=== PATIENT | female | born 1950 | race Caucasian/White ===

== ENCOUNTER → 2016-10-11 | Outpatient (CLI) | payer OTHER ==
[~2016-10-11] MED LIST: CETI10CA PO; EST45C VG; L GA1CAP PO
--- OUTSIDE RECORDS SUMMARY | 2016-10-11 07:03 | XMS REPORT | Continuity of Care Document ---
Author Author [facility] Organization [facility] Address Unknown Phone Unavailable Allergies Active Description Code Type Severity Reaction Onset Reported/Identified Relationship to Patient Clinical Status Yes No Known Drug Allergies [id number] Drug Allergy Unknown N/ A 10/05/2013 Medications Problems Date Dx Coded Attending Type Code Diagnosis Diagnosed By 10/06/2013 LOLITA ALEGRIA DO Ot 211.3 10/06/2013 LOLITA ALEGRIA DO Ot 569.0 10/06/2013 LOLITA ALEGRIA DO Ot V16.0 10/06/2013 LOLITA ALEGRIA DO Ot V76.51 06/25/2014 FREEMAN DO, CHERYL Ot 305.1 06/25/2014 FREEMAN DO, CHERYL Ot 786.09 06/25/2014 FREEMAN DO, CHERYL Ot V16.0 06/25/2014 FREEMAN DO, CHERYL Ot V58.69 06/25/2014 FREEMAN DO, CHERYL Ot V70.0 06/25/2014 Ot 305.1 06/25/2014 Ot V16.0 06/25/2014 Ot V70.0 06/25/2014 Ot V72.62 06/25/2014 Ot V82.81 06/25/2014 Ot V76.12 06/25/2014 FREEMAN DO, CHERYL Ot 305.1 06/25/2014 FREEMAN DO, CHERYL Ot V16.0 06/25/2014 FREEMAN DO, CHERYL Ot V70.0 06/25/2014 FREEMAN DO, CHERYL Ot V76.12 06/25/2014 LOLITA ALEGRIA DO Ot V72.84 07/06/2014 FREEMAN DO, CHERYL Ot 305.1 07/06/2014 FREEMAN DO, CHERYL Ot 786.09 07/06/2014 FREEMAN DO, CHERYL Ot V16.0 07/06/2014 FREEMAN DO, CHERYL Ot V58.69 07/06/2014 FREEMAN DO, CHERYL Ot V70.0 09/20/2014 FREEMAN DO, CHERYL Ot V76.12 03/07/2015 FREEMAN DO, CHERYL Ot 305.1 03/07/2015 FREEMAN DO, CHERYL Ot 496 03/07/2015 FREEMAN DO, CHERYL Ot 627.3 03/07/2015 FREEMAN DO, CHERYL Ot V16.0 03/07/2015 FREEMAN DO, CHERYL Ot V58.69 03/07/2015 FREEMAN DO, CHERYL Ot V70.0 02/23/2016 FREEMAN DO, CHERYL Ot E55.9 VITAMIN D DEFICIENCY, UNSPECIFIED 02/23/2016 FREEMAN DO, CHERYL Ot Z00.00 ENCNTR FOR GENERAL ADULT MEDICAL EXAM 02/23/2016 FREEMAN DO, CHERYL Ot Z87.891 PERSONAL HISTORY OF NICOTINE DEPENDENCE Procedures Results Encounters ACCT No. Visit Date/Time Discharge Status Pt. Type Provider Facility Loc./Unit Complaint [id number] 02/18/2015 09:44:00 2014 23:59:59 CLS Outpatient FREEMAN DO, CHERYL [facility] LAB [id number] 09/03/2014 10:12:00 2014 23:59:59 CLS Outpatient FREEMAN DO, CHERYL [facility] RAD [id number] 06/23/2014 11:34:00 2013 23:59:59 CLS Outpatient FREEMAN DO, CHERYL [facility] RT [id number] 10/06/2013 11:48:00 2013 15:10:00 DIS Outpatient RAJI DOLOLITA D [facility] [id number] 09/30/2013 07:26:00 2013 23:59:59 CLS Outpatient RAJI DO LOLITA D [facility] PREOP [id number] 08/26/2013 09:18:00 2013 23:59:59 CLS Outpatient FREEMAN DO, CHERYL [facility] RAD [id number] 08/20/2013 11:14:00 2013 23:59:59 CLS Outpatient FREEMAN DO, CHERYL [facility] LAB [id number] 05/10/2013 15:27:00 2012 23:59:59 CLS Outpatient [id number] 02/23/2016 06:41:00 ACT Outpatient CHERYL FREEMAN DO [facility] LAB [id number] 10/03/2015 07:22:00 ACT Outpatient CHERYL FREEMAN DO [facility] [id number] 06/20/2012 07:22:00 Document Registration [id number] 05/15/2012 08:57:00 Document Registration
--- NOTE | 2016-10-12 10:43 | Diagnostic Imaging Report ---
Bilateral screening mammogram. The current study was also evaluated with a Computer Aided Detection (CAD) system. INDICATION: Screening. No current complaints stated on the questionnaire. COMPARISON: 10/03/2015. FINDINGS: The breasts are composed of scattered fibroglandular densities. There is no mass, architectural distortion, or suspicious of calcification. Allowing for technique and positional differences, no suspicious change is seen. IMPRESSION: No significant change. ACR BI-RADS Category 2: Benign findings. Result letter will be mailed to the patient. Note: At least 10% of breast cancer is not imaged by mammography. Dictated by: Dictated on workstation # [id number]
== END ==
LOC: RAD 07:00
PROVIDERS: ATTEND Internal Medicine
DX: Z12.31 Encounter for screening mammogram for malignant neoplasm of breast (principal)
CPT/HCPCS: 77067

== ENCOUNTER → 2017-04-22 | Outpatient (CLI) | payer OTHER ==
[2017-04-22 06:55] LABS: BASOPHILS # (AUTO) 0.1 10^3/uL (0.0-0.1); BASOPHILS % (AUTO) 1 % (0-10); EOSINOPHILS # (AUTO) 0.2 10^3/uL (0.0-0.3); EOSINOPHILS % (AUTO) 3 % (0-10); LYMPHOCYTES # (AUTO) 2.1 X 10^3 (1.0-4.0); LYMPHOCYTES % (AUTO) 31 % (12-44); MEAN CORPUSCULAR HEMOGLOBIN 31 PG (25-34); MEAN CORPUSCULAR HGB CONC 33 G/DL (32-36); MEAN CORPUSCULAR VOLUME 94 FL (80-99); MEAN PLATELET VOLUME 9.9 FL (7.4-10.4); MONOCYTES # (AUTO) 0.8 X 10^3 (0.0-1.0); MONOCYTES % (AUTO) 12 % (0-12); NEUTROPHILS # (AUTO) 3.7 X 10^3 (1.8-7.8); NEUTROPHILS % (AUTO) 54 % (42-75); PLATELET COUNT 275 10^3/uL (130-400); RED BLOOD COUNT 4.82 10^6/uL (4.35-5.85); RED CELL DISTRIBUTION WIDTH 13.5 % (10.0-14.5); WHITE BLOOD COUNT 6.9 10^3/uL (4.3-11.0)
[2017-04-22 07:17] LABS: ALANINE AMINOTRANSFERASE 29 U/L (0-55); ANION GAP 7 MMOL/L (5-14); ASPARTATE AMINO TRANSFERASE 21 U/L (5-34); BILIRUBIN,TOTAL 0.4 MG/DL (0.1-1.0); BLOOD UREA NITROGEN 15 MG/DL (7-18); BUN/CREATININE RATIO 18; CALCIUM 9.1 MG/DL (8.5-10.1); CARBON DIOXIDE 24 MMOL/L (21-32); CHLORIDE 110 MMOL/L (98-107); CHOLESTEROL 157 MG/DL (< 200); CREATININE SERUM 0.85 MG/DL (0.60-1.30); DIRECT LDL 64 MG/DL (1-129); GFR ESTIMATED > 60; GLUCOSE 92 MG/DL (70-105); POTASSIUM 4.3 MMOL/L (3.6-5.0); SODIUM 141 MMOL/L (135-145); TOTAL PROTEIN 6.7 GM/DL (6.4-8.2); TRIGLYCERIDES 87 MG/DL (<150); VLDL CHOLESTEROL 17 MG/DL (5-40)
[2017-04-22 07:37] LABS: THYROID STIMULATING HORMONE 1.59 UIU/ML (0.35-4.94)
== END ==
LOC: LAB 06:41
PROVIDERS: ATTEND Internal Medicine
DX: E78.1 Pure hyperglyceridemia (principal); E78.00 Pure hypercholesterolemia, unspecified
CPT/HCPCS: 36415; 80053; 80061; 84443; 85025

== ENCOUNTER → 2017-10-31 | Outpatient (CLI) | payer OTHER ==
--- NOTE | 2017-10-31 17:50 | Diagnostic Imaging Report ---
INDICATION: Routine screening. Comparison is made with prior exam from 10/11/2016 and 10/03/2015. The current study was also evaluated with a Computer Aided Detection (CAD) system. FINDINGS: Scattered fibroglandular densities are identified bilaterally. The parenchymal pattern is stable. No dominant mass or malignant-appearing microcalcifications are seen. The axillae are unremarkable. IMPRESSION: No mammographic features suspicious for malignancy are identified. ACR BI-RADS Category 1: Negative. Result letter will be mailed to the patient. Note: At least 10% of breast cancer is not imaged by mammography. Dictated by: Dictated on workstation # [id number]
== END ==
LOC: RAD 10-22 07:11
PROVIDERS: ATTEND Internal Medicine
DX: Z12.31 Encounter for screening mammogram for malignant neoplasm of breast (principal)
CPT/HCPCS: 77067

== ENCOUNTER → 2018-12-03 | Outpatient (CLI) | payer MEDICARE, OTHER ==
--- NOTE | 2018-12-03 21:29 | Diagnostic Imaging Report ---
INDICATION: Routine screening. COMPARISON: Prior mammogram from 10/31/2017 and 10/11/2016. EXAMINATION: 2D and 3D bilateral screening mammography was performed with CAD. The current study was also evaluated with a Computer Aided Detection (CAD) system. FINDINGS: Scattered fibronodular densities are identified, bilaterally. No mass or malignant appearing microcalcifications are seen. Axillae are unremarkable. IMPRESSION: No mammographic features suspicious for malignancy are identified. ACR BI-RADS Category 1: Negative. Result letter will be mailed to the patient. Note: At least 10% of breast cancer is not imaged by mammography. Dictated by: Dictated on workstation # [id number]
== END ==
LOC: RAD 09:51
PROVIDERS: ATTEND Internal Medicine
DX: Z12.31 Encounter for screening mammogram for malignant neoplasm of breast (principal)
CPT/HCPCS: 77067

== ENCOUNTER → 2020-07-27 | Outpatient (CLI) | payer MEDICARE, OTHER ==
--- NOTE | 2020-07-27 08:44 | Diagnostic Imaging Report ---
PA and lateral chest at 7:24. Indication: Shortness of breath The heart size is within normal limits and stable when compared to 03/14/2007. The lungs are hyperexpanded. This does suggest COPD. There is no evidence for failure, pneumonia or for pleural effusion to indicate an acute abnormality. However in the interval since the prior exam, a poorly defined 1.4 cm area of increased density has developed in the right perihilar region on the PA view. There is no corresponding abnormality seen on the lateral view and this finding may merely be secondary to superimposition of the bronchovascular markings as opposed to a parenchymal mass. Even so, I would recommend that a repeat PA chest be obtained for further study. If this density persists on the followup PA view, then CT of the chest may be necessary for further study. The mediastinum is not widened. The osseous structures are intact. Impression: 1. There is evidence of COPD but there is no sign of an acute cardiopulmonary abnormality.. 2. The small area of increased density in the right perihilar region seen on the PA view is of uncertain etiology. Considerations and recommendations as above. Dictated by: Dictated on workstation # [id number]
--- NOTE | 2020-07-27 13:14 | Diagnostic Imaging Report ---
Digital mammogram INDICATION: Bilateral screening This study was compared to the prior exams of 12/03/2018, 10/31/2017 and 10/11/2016. At this time there are no current complaints. The current study was also evaluated with a Computer Aided Detection (CAD) system. FINDINGS: The fibroglandular tissue in both breasts is heterogeneously dense. This does limit the sensitivity of this exam. Overall, there does not appear to have been any significant change when compared to the prior study. No primary or secondary sign of malignancy is noted. IMPRESSION: There is no radiographic evidence for malignancy. ACR BI-RADS Category 1: Negative. Result letter will be mailed to the patient. Note: At least 10% of breast cancer is not imaged by mammography. Dictated by: Dictated on workstation # [id number]
== END ==
LOC: RAD 07:45
PROVIDERS: ATTEND Internal Medicine
DX: Z12.31 Encounter for screening mammogram for malignant neoplasm of breast (principal); R06.02 Shortness of breath
CPT/HCPCS: 71046; 77063; 77067

== ENCOUNTER → 2020-09-01 | Outpatient (CLI) | payer MEDICARE, OTHER ==
[~2020-09-01] MED LIST changes: +RT-ALBUTEROL SULF 2.5 MG/3 ML PRE-MIX VIAL INH ONE
== END ==
LOC: RT 08:00
PROVIDERS: ATTEND Internal Medicine
DX: J44.9 Chronic obstructive pulmonary disease, unspecified (principal)
CPT/HCPCS: 94060; 94726; 94729

== ENCOUNTER 2020-09-09 05:49 | Outpatient (RCR) | payer MEDICARE, OTHER ==
[~2020-09-09] VITALS: Ht 165.1 cm; Wt 81.7 kg
[~2020-09-09 05:49] MED LIST changes: +ASPI-999 PO; +CETI10TA17 PO; +RT-ALBUINH IH; -RT-ALBUTEROL SULF 2.5 MG/3 ML PRE-MIX VIAL INH ONE; +UMEC62.5 IH
== END 2020-09-12 12:23 | disposition home or self-care (01) ==
LOC: PREOP 05:49
PROVIDERS: ATTEND Surgery
DX: Z01.812 Encounter for preprocedural laboratory examination (principal); Z20.822 Contact with and (suspected) exposure to COVID-19; Z80.0 Family history of malignant neoplasm of digestive organs
CPT/HCPCS: 87635

== ENCOUNTER 2020-09-13 08:34 | Day surgery (SDC) | payer MEDICARE, OTHER ==
[~2020-09-13] VITALS: Ht 165.1 cm; Wt 81.7 kg
[2020-09-13] MEDS ORDERED: LACTATED RINGERS 1,000 ML IV ONE (08:35)
[2020-09-13] MEDS ORDERED: LACTATED RINGERS 1,000 ML IV STA (08:42)
--- NOTE | 2020-09-13 09:05 | Progress Note-Pre Operative ---
Pre-Operative Progress Note H&P Reviewed The H&P was reviewed, patient examined and no changes noted. Date Seen by Provider: Sep 13, 2020 Time Seen by Provider: 09:05 Date H&P Reviewed: Sep 13, 2020 Time H&P Reviewed: 09:05 Pre-Operative Diagnosis: family history of colon cancer, hx polyps LOLITA ALEGRIA DO Sep 13, 2020 09:05
[2020-09-13 09:14] VITALS: BP 132/86
[2020-09-13] MEDS ORDERED: PROPOFOL INJECTION 50 ML IV ONE (09:35)
[2020-09-13 10:10] VITALS: BP 116/60
[2020-09-13 10:15] VITALS: BP 112/62
[2020-09-13 10:20] VITALS: BP 112/68
[2020-09-13 10:37] VITALS: BP 148/94
--- NOTE | 2020-09-13 10:39 | Progress Note-Post Operative ---
Post-Operative Progess Note Surgeon (s)/Powerhouse Laborer (s) Surgeon LOLITA ALEGRIA DO Powerhouse Laborer: na Pre-Operative Diagnosis family history of colon cancer, hx polyps Post-Operative Diagnosis diverticulosis, colon polyp x 2 Procedure & Operative Findings Date of Procedure 09/13/20 Procedure Performed/Findings colonoscopy c hot bx polypectomy x 2 Anesthesia Type per millwright Estimated Blood Loss Estimated blood loss (mL): none Specimens/Packing Specimens Removed colon polyp - transverse, sigmoid LOLITA ALEGRIA DO Sep 13, 2020 10:39
--- NOTE | 2020-09-13 10:41 | Discharge Inst-Simple/Standard ---
Discharge Inst-Standard Patient Instructions/Follow Up Plan of Care/Instructions/FU: 2 weeks Payal Activity as Tolerated: Yes Discharge Diet: Regular Diet LOLITA ALEGRIA DO Sep 13, 2020 10:41
--- NOTE | 2020-09-13 12:43 | OPERATIVE REPORT ---
DATE OF SERVICE: 09/13/2020 PREOPERATIVE DIAGNOSES: Family history of colon cancer, history of polyps. POSTOPERATIVE DIAGNOSES: Diverticulosis, colon polyps x2. PROCEDURE: Colonoscopy with hot biopsy polypectomy x2. SURGEON: Lolita Moe DO ANESTHESIA: Per BINDER CUTTER HAND. ESTIMATED BLOOD LOSS: None. COMPLICATIONS: None. SPECIMENS: Colon polyps, transverse colon, and sigmoid. DESCRIPTION OF PROCEDURE: The patient was taken to the endoscopy suite, placed in left lateral recumbent position. Timeout was performed. Digital rectal exam was performed. There were no palpable polyps, masses or ulcerations. Scope was inserted in the rectum and advanced all the way to cecum with minimal difficulty. Prep was adequate. Scope was then slowly retracted back. There were no polyps, masses or ulcerations within the cecum and ascending colon and transverse colon near a previous tattoo, another polyp was present, which hot biopsy polypectomy was performed. Scope was then continuously retracted back until the remainder of the transverse and descending colon without any polyps, masses or ulcerations. Scope was continuously retracted back into the sigmoid where there was a minimal amount of diverticulosis. A small polyp was present as well. Hot biopsy polypectomy was performed. Scope was then continuously retracted back until the rectum, where it was also retroflexed noting no other pathology. The patient tolerated procedure well without any complications. She was taken to recovery room in stable condition. RECOMMENDATIONS: The patient recommended high fiber diet due to diverticulosis. We would also recommend repeat colonoscopy in 5 years. Any issues before that be seen at that time. Job ID: [id number] DocumentID: [id number] Dictated Date: 09/13/2020 10:43:14 Digital Advertising Analyst Date: 09/13/2020 12:42:31 Dictated By: LOLITA MOE DO
--- NOTE | 2020-09-22 06:49 | Anesthesia-General Post-Op ---
MAC Significant Intra-Op Events Notes postop addendum for mac anesthesia on 09-13-20 at 1030 Patient Condition Mental Status/LOC: Same as Preop Cardiovascular: Satisfactory Nausea/Vomiting: Absent Respiratory: Satisfactory Pain: Controlled Complications: Absent Post Op Complications Complications None Follow Up Care/Instructions Patient Instructions None needed. Anesthesiology Discharge Order Discharge Order Patient is doing well, no complaints, stable vital signs, no apparent adverse anesthesia problems. No complications reported per nursing. FRANCE LILLY CRNA Sep 22, 2020 06:49
== END 2020-09-13 10:50 | disposition home or self-care (01) ==
LOC: ENDO 08:34
PROVIDERS: ATTEND Surgery
DX: K63.5 Polyp of colon (principal); K57.30 Diverticulosis of large intestine without perforation or abscess without bleeding; J44.9 Chronic obstructive pulmonary disease, unspecified; Z79.51 Long term (current) use of inhaled steroids; Z87.891 Personal history of nicotine dependence; Z86.010 Personal history of colon polyps; Z80.0 Family history of malignant neoplasm of digestive organs
CPT/HCPCS: 88305

== ENCOUNTER → 2021-08-18 | Outpatient (CLI) | payer MEDICARE, OTHER ==
--- NOTE | 2021-08-18 11:42 | Diagnostic Imaging Report ---
Digital mammogram, bilateral screening This study was compared to the prior exams of 07/27/2020, 12/03/2018 and 10/31/2017. At this time, there are no current complaints. The current study was also evaluated with a Computer Aided Detection (CAD) system. FINDINGS: There are scattered fibroglandular densities in both breasts which could obscure a lesion. Overall, there does not appear to have been any significant change when compared to the prior exam. No primary or secondary sign of malignancy is noted. IMPRESSION: There is no radiographic evidence for malignancy. ACR category 1 ACR BI-RADS Category 1: Negative. Result letter will be mailed to the patient. Note: At least 10% of breast cancer is not imaged by mammography. Dictated by: Dictated on workstation # [id number]
== END ==
LOC: RAD 08:15
PROVIDERS: ATTEND Internal Medicine
DX: Z12.31 Encounter for screening mammogram for malignant neoplasm of breast (principal)
CPT/HCPCS: 77063; 77067

== ENCOUNTER → 2022-11-19 | Outpatient (CLI) | payer MEDICARE, OTHER ==
[~2022-11-19] MED LIST changes: +ALBU8.5H6 IH; -RT-ALBUINH IH
--- NOTE | 2022-11-19 18:33 | Diagnostic Imaging Report ---
TECHNIQUE: 3 bilateral screening mammogram The current study was also evaluated with a Computer Aided Detection (CAD) system. COMPARISON: 08/18/2021, 07/27/2020 and 12/03/2018. FINDINGS: At this time, there are no current complaints. There are scattered fibroglandular densities in both breasts which could obscure a lesion. Overall, there does not appear to have been any significant change when compared to the prior exam. No primary or secondary sign of malignancy is noted. IMPRESSION: There is no radiographic evidence for malignancy. BI-RADS CATEGORY 1 NEGATIVE ACR BI-RADS Category 1: Negative. Result letter will be mailed to the patient. Note: At least 10% of breast cancer is not imaged by mammography. Dictated by: Dictated on workstation # [id number]
== END ==
LOC: RAD 07:34
PROVIDERS: ATTEND Internal Medicine
DX: Z12.31 Encounter for screening mammogram for malignant neoplasm of breast (principal)
CPT/HCPCS: 77063; 77067